=== PATIENT | female | born 1965 | race African-American/Black ===

== ENCOUNTER 2016-07-22 03:20 | Observation (INO) | payer MEDICARE, MEDICAID ==
[~2016-07-22] VITALS: Ht 162.6 cm; Wt 59.9 kg
[~2016-07-22 03:20] MED LIST: ALPR0.25 PO; ASP81EC PO; ATEN100T PO; ATOR20TA PO; ENAL-3 PO; GABA-494 PO; HYDR-2652 PO; HYDR500T13 PO; OMEP20TA; PRA25T PO
[2016-07-22 05:05] LABS: Basophils # (auto) 0 uL; Basophils % (auto) 0.4 % (0.0-2.0); Eosinophils # (auto) 0.2 uL; Hematocrit 39.6 % (36.0-46.0); Hemoglobin 13.2 g/dL (12.2-16.2); Lymphocytes # (auto) 2.2 uL; Lymphocytes % (auto) 35.8 % (10.0-50.0); Mean Corpuscular Hemoglobin 30.3 pg (28.0-32.0); Mean Corpuscular Hgb Conc. 33.4 g/dL (32.0-36.0); Mean Corpuscular Volume 90.6 fL (80.0-100.0); Mean Platelet Volume 8.6 fL (7.4-10.4); Monocytes # (auto) 0.4 uL; Monocytes % (auto) 6.4 % (0.0-12.0); Neutrophils # (auto) 3.2 uL; Neutrophils % (auto) 53.4 % (37.0-80.0); Platelet Count (auto) 241 10^3/uL (140-450); Red Cell Distribution Width 13.3 % (11.6-16.0); SUSPECT VIEW TRANSMISSION; White Blood Cell 6.1 10^3/uL (4.4-10.8)
[2016-07-22 05:19] LABS: Albumin 3.5 g/dL (3.4-5.0); Alkaline Phosphatase 68 U/L (45-117); Anion Gap 7 (5-15); Aspartate Aminotransferase 15 U/L (15-37); BUN/Creatinine Ratio 12.1; Bilirubin, Total 0.4 mg/dL (0.2-1.0); Blood Urea Nitrogen 11 mg/dL (7-18); Calcium 8.7 mg/dL (8.5-10.1); Carbon Dioxide 24 mmol/L (21-32); Chloride 108 mmol/L (98-107); GFR African American 85 mL/min; GFR Non-African American 70 mL/min; Glucose 88 mg/dL (74-106); Magnesium 2.2 mg/dL (1.6-2.6); Potassium 3.9 mmol/L (3.5-5.1); Sodium 139 mmol/L (136-145); Total Protein 7.9 g/dL (6.4-8.2)
[2016-07-22 05:23] LABS: Urine Bilirubin Negative (Negative); Urine Blood TRACE /uL (Negative); Urine Color Yellow (Yellow); Urine Glucose Normal (Normal); Urine Mucus FEW (None Seen); Urine Nitrite Negative (Negative); Urine RBC 63 /hpf (0 - 4); Urine Squamous Epithelial Cell FEW /hpf (<5)
[2016-07-22 05:27] LABS: Urine Ketone 2+ (Negative)
[2016-07-22] MEDS ORDERED: SODIUM CHLORIDE 0.9% 1,000 ML IV ONE (07:28)
[2016-07-22] MEDS ORDERED: ONDANSETRON HCL 4 MG/2 ML VIAL IV ONE (07:30)
[2016-07-22] MEDS ORDERED: KETOROLAC TROMETH 30 MG/ML 1ML VIAL IV ONE (07:30)
[2016-07-22 10:04] VITALS: BP 150/93
== END 2016-07-22 10:13 | disposition left against medical advice (07) | DRG 392 ==
LOC: ER 03:26 → OVERFLOW 07:29 → ER 10:13
PROVIDERS: ADMIT Emergency Medicine; ATTEND Emergency Medicine
DX: R11.2 Nausea with vomiting, unspecified (principal); Z87.442 Personal history of urinary calculi; Z86.73 Personal history of transient ischemic attack (TIA), and cerebral infarction without residual deficits; K21.9 Gastro-esophageal reflux disease without esophagitis; I25.10 Atherosclerotic heart disease of native coronary artery without angina pectoris; I10 Essential (primary) hypertension; F17.210 Nicotine dependence, cigarettes, uncomplicated; M35.3 Polymyalgia rheumatica; F41.1 Generalized anxiety disorder; Z79.899 Other long term (current) drug therapy; Z79.82 Long term (current) use of aspirin
CPT/HCPCS: 36415; 70450; 71010; 80053; 80307; 81001; 83735; 84443; 84484; 85025; 96361; 96374; 96375; 99285; G0378; J1885; J2405; J7030

== ENCOUNTER 2017-11-25 11:17 | Inpatient (IN) | payer MEDICARE, MEDICAID ==
[~2017-11-25] VITALS: Ht 162.6 cm; Wt 72.5 kg
[~2017-11-25 11:17] MED LIST changes: -GABA-494 PO; +GABA100C9 PO; -HYDR-2652 PO; +HYDR50TA15 PO
[2017-11-25] MEDS ORDERED: MORPHINE SULFATE 4 MG/ML SYR/VIAL IV ONE ×2 (12:15→13:15)
[2017-11-25] MEDS ORDERED: SODIUM CHLORIDE 0.9% 1,000 ML IV ONE ×2 (12:15→18:30)
[2017-11-25] MEDS ORDERED: ONDANSETRON HCL 4 MG/2 ML VIAL IV ONE (12:15)
[2017-11-25] MEDS ORDERED: IOHEXOL 300 MG/ML 100ML BOTTLE IJ ONE (12:21)
[2017-11-25] MEDS ORDERED: METOCLOPRAMIDE HCL 5MG/ml INJ 2ml VIAL IV ONE ×2 (12:30→16:30)
[2017-11-25] MEDS ORDERED: PROMETHAZINE HCL 25 MG/ML 1ML IV ONE ×2 (12:30→13:45)
[2017-11-25 14:05] LABS: Urine Bacteria FEW /hpf (None Seen); Urine Blood 2+ /uL (Negative); Urine Budding Yeast FEW /hpf (None Seen); Urine Specific Gravity 1.018 (1.001-1.035); Urine WBC 2 /hpf (0 - 5)
[2017-11-25 14:18] LABS: Alcohol, Urine < 3.0 mg/dL (0-5); Amphetamine Screen, Urine NEGATIVE (NEGATIVE); Barbiturate Scree,Urine NEGATIVE (NEGATIVE); Benzodiazephine Screen, Urine NEGATIVE (NEGATIVE); Cannabinoid Screen, Urine POSITIVE (NEGATIVE); Cocaine Screen, Urine NEGATIVE (NEGATIVE); Opiate Scree,Urine POSITIVE (NEGATIVE); Phencyclidine Screen, Urine NEGATIVE (NEGATIVE)
[2017-11-25 14:55] LABS: Basophils # (auto) 0 uL; Basophils % (auto) 0.3 % (0.0-2.0); Eosinophils # (auto) 0 uL; Hematocrit 43.4 % (36.0-46.0); Hemoglobin 14.4 g/dL (12.2-16.2); Lymphocytes # (auto) 0.6 uL; Lymphocytes % (auto) 4.1 % (10.0-50.0); Mean Corpuscular Hemoglobin 29.9 pg (28.0-32.0); Mean Corpuscular Hgb Conc. 33.2 g/dL (32.0-36.0); Monocytes # (auto) 0.5 uL; Monocytes % (auto) 3.8 % (0.0-12.0); Neutrophils # (auto) 12.8 uL; Neutrophils % (auto) 91.8 % (37.0-80.0); Nucleated Red Blood Cells % 0.2 %; Platelet Count (auto) 267 10^3/uL (140-450); Red Blood Cells 4.83 10^6/uL (4.0-5.20); Red Cell Distribution Width 13.3 % (11.8-14.3)
[2017-11-25 15:15] LABS: Lactic Acid w/Reflex 3.1 mmol/L (0.4-2.0)
[2017-11-25 15:16] LABS: INR 0.97 (0.9-1.15); Partial Thromboplastin Time 18.3 sec (23.78-33.04); Prothrombin Time 10.4 sec (9.27-12.13)
[2017-11-25 15:20] LABS: Albumin 4.1 g/dL (3.4-5.0); BUN/Creatinine Ratio 15.6; Bilirubin, Total 0.5 mg/dL (0.2-1.0); Magnesium 2.2 mg/dL (1.6-2.6); Potassium 3.6 mmol/L (3.5-5.1)
[2017-11-25] MEDS ORDERED: SODIUM CHLORIDE 0.9% 2,000 ML IV ONE (16:15)
[2017-11-25] MEDS ORDERED: HYDROmorphone HCL 2 MG/ML VL IV ONE (16:30)
[2017-11-25] MEDS: SODIUM CHLORIDE 0.9% 1,000 ML IV SCH (18:55)
[2017-11-25] MEDS ORDERED: HYDROcodone-ACET 5/325MG TAB PO PRN (19:00)
[2017-11-25] MEDS ORDERED: ACETAMINOPHEN 500 MG TAB PO PRN (19:00)
[2017-11-25] MEDS ORDERED: MORPHINE SULFATE 4 MG/ML SYR/VIAL IV PRN (19:00)
[2017-11-25] MEDS ORDERED: TEMAZEPAM 15 MG CAP PO PRN (19:00)
[2017-11-25] MEDS ORDERED: NITROGLYCERIN 0.4 MG SL TAB SL PRN (19:00)
[2017-11-25] MEDS ORDERED: LORazepam 0.5 MG TAB PO PRN (19:00)
[2017-11-25] MEDS ORDERED: ONDANSETRON HCL 4 MG/2 ML VIAL IV PRN ×2 (19:00→19:15)
[2017-11-25] MEDS ORDERED: cefTRIAXone 1GM/10ml IVPUSH 10 ML IV ONE (19:00)
[2017-11-25] MEDS: metroNIDAZOLE 500MG/100ML 100 ML IV SCH (19:03)
[2017-11-25] MEDS ORDERED: ENOXAPARIN SOD 40 MG/0.4 ML SYRINGE SC SCH (19:08)
[2017-11-25] MEDS: FAMOTIDINE (10MG/ML) 2ML VL IV SCH (19:33)
[2017-11-25 20:15] VITALS: BP 125/88
[2017-11-25] MEDS: NORTRIPTYLINE HCL 10 MG CAP PO SCH (21:43)
[2017-11-25] MEDS: PANTOPRAZOLE 40 MG TAB PO SCH (21:44)
[2017-11-25] MEDS: oxyCODONE ER 20 MG TAB PO SCH (21:44)
[2017-11-25] MEDS ORDERED: PANTOPRAZOLE 40 MG/10 ML VIAL IV ONE (22:30)
[2017-11-26] MEDS: metroNIDAZOLE 500MG/100ML 100 ML IV SCH ×5 (01:03→19:29)
[2017-11-26] MEDS: SODIUM CHLORIDE 0.9% 1,000 ML IV SCH ×2 (04:31→20:40)
[2017-11-26] MEDS: MORPHINE SULFATE 4 MG/ML SYR/VIAL IV PRN ×3 (04:46→20:40)
[2017-11-26 05:00] VITALS: BP 119/51
[2017-11-26 06:14] LABS: Basophils # (auto) 0.1 uL; Basophils % (auto) 0.8 % (0.0-2.0); Eosinophils # (auto) 0 uL; Eosinophils % (auto) 0.3 % (0.0-7.0); Hematocrit 36.3 % (36.0-46.0); Hemoglobin 12.3 g/dL (12.2-16.2); Lymphocytes % (auto) 16.5 % (10.0-50.0); Mean Corpuscular Hemoglobin 30.5 pg (28.0-32.0); Mean Corpuscular Hgb Conc. 33.8 g/dL (32.0-36.0); Mean Corpuscular Volume 90.1 fL (80.0-100.0); Monocytes # (auto) 0.6 uL; Monocytes % (auto) 4.9 % (0.0-12.0); Neutrophils # (auto) 9.6 uL; Neutrophils % (auto) 77.5 % (37.0-80.0); Nucleated Red Blood Cells % 0.1 %; Platelet Count (auto) 229 10^3/uL (140-450); Red Blood Cells 4.03 10^6/uL (4.0-5.20); Red Cell Distribution Width 13.1 % (11.8-14.3); White Blood Cell 12.4 10^3/uL (4.4-10.8)
[2017-11-26] MEDS: FAMOTIDINE (10MG/ML) 2ML VL IV SCH ×2 (06:35→19:29)
[2017-11-26 08:20] VITALS: BP 113/70
[2017-11-26 09:32] VITALS: BP 113/70
[2017-11-26] MEDS: PANTOPRAZOLE 40 MG TAB PO SCH ×2 (09:51→21:24)
[2017-11-26] MEDS: oxyCODONE ER 20 MG TAB PO SCH ×2 (09:52→21:24)
[2017-11-26] MEDS: cefTRIAXone 1GM/10ml IVPUSH 10 ML IV SCH (10:35)
[2017-11-26 12:08] LABS: Hematocrit 40.5 % (36.0-46.0); Hemoglobin 13.4 g/dL (12.2-16.2)
[2017-11-26 12:30] VITALS: BP 134/78
[2017-11-26 17:29] VITALS: BP 127/71
[2017-11-26] MEDS: NORTRIPTYLINE HCL 10 MG CAP PO SCH (21:24)
[2017-11-26 22:00] VITALS: BP 122/76
[2017-11-27] MEDS: metroNIDAZOLE 500MG/100ML 100 ML IV SCH ×3 (01:43→12:59)
[2017-11-27] MEDS: MORPHINE SULFATE 4 MG/ML SYR/VIAL IV PRN ×2 (02:53→08:42)
[2017-11-27] MEDS: SODIUM CHLORIDE 0.9% 1,000 ML IV SCH ×2 (04:27→13:02)
[2017-11-27 06:05] VITALS: BP 124/76
[2017-11-27] MEDS: FAMOTIDINE (10MG/ML) 2ML VL IV SCH (06:19)
[2017-11-27 08:05] VITALS: BP 129/87
[2017-11-27] MEDS: cefTRIAXone 1GM/10ml IVPUSH 10 ML IV SCH (08:41)
[2017-11-27 09:00] VITALS: BP 129/87
[2017-11-27] MEDS: oxyCODONE ER 20 MG TAB PO SCH (10:31)
[2017-11-27] MEDS: PANTOPRAZOLE 40 MG TAB PO SCH (10:31)
[2017-11-27 13:00] VITALS: BP 126/79
[2017-11-27 15:53] VITALS: BP 143/93
== END 2017-11-27 16:45 | disposition home or self-care (01) | DRG 445 ==
LOC: EDBD 11:17 → ER 11:22 → EDUNIT# 11:23 → TELE 11:23 → TELE-CENTR 20:16 → CENTRAL 11-26 12:13
PROVIDERS: ADMIT Internal Medicine; ATTEND Internal Medicine
PROC: CF1C1ZZ Planar Nuclear Medicine Imaging of Hepatobiliary System, All using Technetium 99m (Tc-99m) (ICD-10-PCS; principal; 2017-11-27)
DX: K80.20 Calculus of gallbladder without cholecystitis without obstruction (principal); E87.2 Acidosis; R65.10 Systemic inflammatory response syndrome (SIRS) of non-infectious origin without acute organ dysfunction; K29.70 Gastritis, unspecified, without bleeding; G43.A1 Cyclical vomiting, in migraine, intractable; M54.9 Dorsalgia, unspecified; E86.0 Dehydration; F12.90 Cannabis use, unspecified, uncomplicated; F32.9 Major depressive disorder, single episode, unspecified; M19.90 Unspecified osteoarthritis, unspecified site; F41.0 Panic disorder [episodic paroxysmal anxiety]; G89.29 Other chronic pain; I10 Essential (primary) hypertension; M51.37 Other intervertebral disc degeneration, lumbosacral region; Z85.72 Personal history of non-Hodgkin lymphomas; Z90.710 Acquired absence of both cervix and uterus; Z88.8 Allergy status to other drugs, medicaments and biological substances
CPT/HCPCS: 36415; 74176; 76705; 78226; 80053; 80307; 81001; 82150; 82270; 83605; 83690; 83735; 85014; 85018; 85025; 85045; 85610; 85652; 85730; 86141; 87040; 87086; 96374; 96375; 96376; J0696; J3490